=== PATIENT | female | born 1970 | race Caucasian/White ===

== ENCOUNTER 2016-11-26 16:53 | Emergency (ER) | payer OTHER ==
[~2016-11-26] VITALS: Ht 160 cm; Wt 56.4 kg
[~2016-11-26 16:53] MED LIST: SYNTHROID175 MCG PO
[2016-11-26] MEDS ORDERED: MOTRIN600 MG PO (17:22)
[2016-11-26] MEDS ORDERED: FLEXERIL5 MG PO (17:22)
[2016-11-26 21:33] VITALS: BP 132/78
== END 2016-11-26 21:34 | disposition home or self-care (01) ==
LOC: EME 16:53
DX: M79.1 Myalgia (principal); R07.9 Chest pain, unspecified; R51 Headache; V49.40XA Driver injured in collision with unspecified motor vehicles in traffic accident, initial encounter; Z91.040 Latex allergy status
CPT/HCPCS: 71020; 99281; 99284

== ENCOUNTER 2016-11-29 13:01 | Emergency (ER) | payer OTHER ==
[~2016-11-29] VITALS: Ht 160 cm; Wt 58.0 kg
[~2016-11-29 13:01] MED LIST changes: +FLEXERIL5 MG PO; +MOTRIN600 MG PO
[2016-11-29 16:22] VITALS: BP 108/61
== END 2016-11-29 16:24 | disposition home or self-care (01) ==
LOC: EME 13:01
DX: F07.81 Postconcussional syndrome (principal); V43.52XD Car driver injured in collision with other type car in traffic accident, subsequent encounter; E03.9 Hypothyroidism, unspecified
CPT/HCPCS: 70450; 99281; 99284